=== PATIENT | female | born 1985 | race Hispanic/Latino ===

== ENCOUNTER 2017-06-16 17:02 | Outpatient (CLI) | payer BC | END 2017-06-16 17:03 | disposition home or self-care (01) | LOC: BICRAD 17:02 | PROVIDERS: ATTEND Podiatrist | DX: M79.674 Pain in right toe(s) (principal); M79.671 Pain in right foot ==

== ENCOUNTER 2017-08-07 16:16 | Emergency (ER) | payer BC ==
--- NOTE | 2017-08-07 17:10 | RAD ---
TWO VIEWS OF CHEST: 08/07/17 COMPARISON: 08/11/08. HISTORY: Pain. FINDINGS: Azygos lobe and fissure noted. No pneumothorax, pleural fluid, focal consolidation or alveolar edema. Mild interstitial prominence. IMPRESSION: No acute findings. POS: [facility]
--- NOTE | 2017-08-07 17:10 | RAD ---
TWO VIEWS LEFT HUMERUS: 08/07/17 COMPARISON: None. HISTORY: Pain. FINDINGS: No fracture is seen. IMPRESSION: No acute findings. POS: [facility]
[2017-08-07 17:11] LABS: #Basophils 0.1 thou/uL (0.0-0.2); #Eosinphils 0.1 thou/uL (0.0-0.7); #Lymphocytes 2.5 thou/uL (1.20-3.40); #Monocytes 0.5 thou/uL (0.11-0.59); #Neutrophils 5.9 thou/uL (1.40-6.50); %Eosinophils 1.1 % (0.0-10.0); %Lymphocytes 27.2 % (21.0-51.0); %Neutrophils 64.8 % (42.0-75.0); Hemoglobin 14.3 g/dL (12.0-16.0); Mean Corpuscular HGB CONC 35.1 g/dL (32.0-36.0); Mean Corpuscular Volume 88.3 fl (81.0-99.0); Mean Platelet Volume 10.5 fL (7.4-10.4); Platelet Count 221 thou/uL (130-400); Red Blood Cell (RBC) Count 4.62 mill/uL (4.20-5.40); White Blood Cell (WBC) Count 9.1 thou/uL (4.8-10.8)
[2017-08-07 17:24] LABS: ALT (SGPT) 42 U/L (8-55); AST (SGOT) 29 U/L (5-34); Albumin 4.5 g/dL (3.5-5.0); Alkaline Phosphatase 94 U/L (40-150); Anion Gap 13 mmol/L (10-20); BUN (Urea Nitrogen) 14 mg/dL (7.0-18.7); Bilirubin, Total 2.4 mg/dL (0.2-1.2); CK (CPK) 119 U/L (29-168); CKMB 0.9 ng/mL (0-6.6); Calc. Creatinine Clearance 0 mL/min (70-130); Carbon Dioxide 27 mmol/L (22-29); Chloride 104 mmol/L (98-107); Estimated GFR-MDRD 66; Globulin 3.3 g/dL (2.4-3.5); Glucose 86 mg/dL (70-105); Lipase 23 U/L (8-78); Potassium 3.5 mmol/L (3.5-5.1); Protein, Total 7.8 g/dL (6.0-8.3); Sodium 140 mmol/L (136-145); Troponin I Less than 0.010 ng/mL (< 0.028)
[2017-08-07] MEDS ORDERED: Ketorolac Tromethamine 30 MG/ML VIAL ONE (17:28)
== END 2017-08-07 18:07 | disposition home or self-care (01) ==
LOC: SCSER 16:16
DX: M79.622 Pain in left upper arm (principal); I10 Essential (primary) hypertension
CPT/HCPCS: 71046; 80053; 82553; 83690; 84484; 85025; 93005; 96374; 96375; J1885; J2270

== ENCOUNTER 2018-01-23 05:15 | Emergency (ER) | payer BC ==
[2018-01-23 05:55] LABS: #Basophils 0.1 thou/uL (0.0-0.2); #Eosinphils 0.1 thou/uL (0.0-0.7); #Monocytes 0.5 thou/uL (0.11-0.59); #Neutrophils 5.6 thou/uL (1.40-6.50); %Basophils 0.5 % (0.0-1.0); %Eosinophils 0.8 % (0.0-10.0); %Lymphocytes 32.6 % (21.0-51.0); %Monocytes 5.3 % (0.0-10.0); %Neutrophils 60.8 % (42.0-75.0); Hemoglobin 13.7 g/dL (12.0-16.0); Mean Corpuscular HGB CONC 34.5 g/dL (32.0-36.0); Mean Corpuscular Hemoglobin 31.4 pg (27.0-31.0); Mean Platelet Volume 9.7 fL (7.4-10.4); Platelet Count 221 thou/uL (130-400); RBC Distribution Width 10.8 % (11.5-14.5); Red Blood Cell (RBC) Count 4.36 mill/uL (4.20-5.40); White Blood Cell (WBC) Count 9.1 thou/uL (4.8-10.8)
[2018-01-23 06:04] LABS: ALT (SGPT) 48 U/L (8-55); AST (SGOT) 28 U/L (5-34); Albumin 4.3 g/dL (3.5-5.0); Alkaline Phosphatase 98 U/L (40-150); Anion Gap 12 mmol/L (10-20); BUN (Urea Nitrogen) 12 mg/dL (7.0-18.7); Bilirubin, Total 1.6 mg/dL (0.2-1.2); Calc. Creatinine Clearance 0 mL/min (70-130); Calcium 9.1 mg/dL (7.8-10.44); Carbon Dioxide 25 mmol/L (22-29); Chloride 106 mmol/L (98-107); Estimated GFR-MDRD 74; Globulin 2.5 g/dL (2.4-3.5); Glucose 103 mg/dL (70-105); Potassium 3.8 mmol/L (3.5-5.1); Protein, Total 6.8 g/dL (6.0-8.3); Sodium 139 mmol/L (136-145)
[2018-01-23] MEDS ORDERED: Morphine 4 MG/ML VIAL ONE ×2 (06:33→08:14)
[2018-01-23] MEDS ORDERED: Ketorolac Tromethamine 30 MG/ML VIAL ONE (06:33)
[2018-01-23 06:54] LABS: Bilirubin Negative (Negative); Blood, Urine Negative (Negative); Clarity CLEAR (Clear); Glucose, Urine (Dipstick) Negative (Negative); Leukocyte Negative (Negative); Nitrite Negative (Negative); Pregnancy Test - Urine (BHCG) Negative (Negative); Pregu Control Background? CLEAR/WHITE (CLR/WHITE); Pregu Control Bar Appear? YES (CONTROL BAR); Protein, Urine (Dipstick) Trace mg/dL (Neg-Trace); Specific Gravity 1.018 (1.002-1.036); Specific Gravity, Urine 1.018 (1.002-1.036)
--- NOTE | 2018-01-23 08:18 | CT ---
ABDOMEN AND PELVIC CT SCAN WITH IV CONTRAST: HISTORY: A 32-year-old female with a history of right-sided abdominal pain, right flank pain, and prior append ectomy. FINDINGS: There is a 0.4 cm diameter pleural-based nodule in the left lower lobe. No additional followup would be needed unless this patient is at very high risk. Probable small hiatal hernia. The liver, gallb ladder, pancreas, spleen, and adrenal glands are unremarkable. No renal calculus or acute obstruc tion. Status post appendectomy. Small bilateral ovarian follicle cyst, 2.8 cm on the right and 3.4 cm on the left. IUD in place. No abnormal cul-de-sac fluid. No bowel obstruction, abscess, adenopa thy, or other acute process. IMPRESSION: No significant acute process in the abdomen or pelvis. No renal calculus or obstruction. Small i ncidental bilateral ovarian follicle cyst. A 0.4 cm diameter pleural-based nodule in the left lower lobe. No additional followup would be needed unless the patient is at very high risk for a primary o r secondary lung neoplasm. POS: [facility]
== END 2018-01-23 09:02 | disposition home or self-care (01) ==
LOC: ERS 05:15
DX: R10.9 Unspecified abdominal pain (principal); I10 Essential (primary) hypertension; Z79.899 Other long term (current) drug therapy
CPT/HCPCS: 36415; 74177; 80053; 81003; 81025; 85025; 96361; 96374; 96375; J1885; J2270

== ENCOUNTER 2018-05-13 20:58 | Emergency (ER) | payer BC ==
[2018-05-13] MEDS ORDERED: Ondansetron PF 4 MG/2 ML Vial ONE (21:12)
[2018-05-13 21:20] LABS: #Monocytes 0.5 thou/uL (0.11-0.59); %Basophils 0.6 % (0.0-1.0); %Eosinophils 0.3 % (0.0-10.0); %Lymphocytes 11.4 % (21.0-51.0); %Neutrophils 81.7 % (42.0-75.0); Hemoglobin 13.8 g/dL (12.0-16.0); Mean Corpuscular Hemoglobin 30.5 pg (27.0-31.0); Mean Platelet Volume 10.8 fL (7.4-10.4); Platelet Count 174 thou/uL (130-400); RBC Distribution Width 10.8 % (11.5-14.5); Red Blood Cell (RBC) Count 4.53 mill/uL (4.20-5.40); White Blood Cell (WBC) Count 8.5 thou/uL (4.8-10.8)
[2018-05-13 21:24] LABS: BHCG - Serum Negative (NEGATIVE); Pregs Control Background? CLEAR/WHITE (CLR/WHITE); Pregs Control Bar Appear? YES (CONTROL BAR)
[2018-05-13 21:33] LABS: ALT (SGPT) 45 U/L (8-55); AST (SGOT) 39 U/L (5-34); Albumin 4.5 g/dL (3.5-5.0); Alkaline Phosphatase 111 U/L (40-150); Anion Gap 14 mmol/L (10-20); BUN (Urea Nitrogen) 12 mg/dL (7.0-18.7); Bilirubin, Total 2.1 mg/dL (0.2-1.2); Calc. Creatinine Clearance 0 mL/min (70-130); Calcium 9.4 mg/dL (7.8-10.44); Carbon Dioxide 24 mmol/L (22-29); Chloride 104 mmol/L (98-107); Estimated GFR-MDRD 73; Glucose 109 mg/dL (70-105); Lipase 22 U/L (8-78); Potassium 3.5 mmol/L (3.5-5.1); Protein, Total 7.5 g/dL (6.0-8.3); Sodium 138 mmol/L (136-145)
[2018-05-13] MEDS ORDERED: Morphine 4 MG/ML Carpuject ONE (21:42)
--- NOTE | 2018-05-13 23:31 | CT ---
CT OF THE ABDOMEN AND PELVIS WITH IV CONTRAST: 05/13/18 INDICATION: History of nausea, vomiting, diarrhea. COMPARISON: Prior CT dated 01/23/18. FINDINGS: Lung bases are clear. Liver, pancreas, adrenal glands, and spleen appear within normal limits. The kidneys are normal appea ring. No free fluid or enlarged lymph nodes are evident. The appendix is not definitely visualized. There are no secondary signs of appendicitis. There is some fluid filled loops of small bowel within the distal ileum. There are bilateral adnexal hypodensities that appear similar to the comparison study dated 01/23/18 which may reflect mildly prom inent follicular cysts. There is an IUD in place. No free fluid is evident within the pelvis. The sony dder is unremarkable appearing. No definite acute osseous abnormality is evident. IMPRESSION: 1. Mild fluid filled loops of small bowel within the lower abdomen may reflect a mild enteritis. 2. Bilateral adnexal cystic lesions suspicious for follicular cysts. This is similar to a compar d[facility] CT dated 01/23/18. 3. IUD. 4. Other findings as above. POS: [facility]
== END 2018-05-13 22:52 | disposition home or self-care (01) ==
LOC: SCSER 20:58
DX: N83.02 Follicular cyst of left ovary (principal); N83.01 Follicular cyst of right ovary; R19.7 Diarrhea, unspecified; I10 Essential (primary) hypertension; Z79.899 Other long term (current) drug therapy
CPT/HCPCS: 74177; 80053; 83690; 84703; 85025; 96361; 96374; 96375; J2270; J2405

== ENCOUNTER 2018-08-07 12:42 | Outpatient (CLI) | payer BC ==
--- NOTE | 2018-08-07 14:55 | ULT ---
LEFT BREAST ULTRASOUND: INDICATIONS: Ultrasound of the retroareolar region of the left breast is performed to evaluate bloody discharge fr om the left breast. No mammographic abnormality identified. FINDINGS: Ultrasound reveals two small cysts in the retroareolar region, each measuring 3 to 5 mm. No suspicio us sonographic finding. IMPRESSION: No suspicious sonographic abnormality; however, due to the presence of a bloody discharge, further ev aluation with breast MRI is recommended. BI-RADS 0-Further evaluation with breast MRI is recommended. POS: [facility]
== END 2018-08-07 12:43 | disposition home or self-care (01) ==
LOC: BICMAMMO 12:42
PROVIDERS: ATTEND Family Medicine
DX: N64.4 Mastodynia (principal)
CPT/HCPCS: 77066; G0279

== ENCOUNTER 2018-08-27 07:15 | Outpatient (CLI) | payer BC ==
--- NOTE | 2018-08-27 09:25 | MRI ---
MRI OF THE BILATERAL BREASTS WITHOUT AND WITH CONTRAST: Comparison: Ultrasound of the left breast, bilateral mammograms, 08-07-18. History: Left breast pain. Bloody nipple discharge. This nipple discharge has resolved since the prev ious examinations. Technique: Multiplanar, multisequence MRI images were obtained of the breasts without and with IV con trast. 3D MIP reformats and contrast enhancement images were generated on a [employer] workstation. FINDINGS: There is heterogeneously dense breast parenchyma. Minimal background parenchymal enhancement is seen. No abnormal signal is seen within the ducts to suggest blood products within the ducts of either su ast. No abnormal enhancement is seen within either breast. No suspicious mass is identified. No axillary adenopathy is seen. No internal mammillary lymph nodes are identified. The visualized osseous structures and anterior liver are unremarkable. IMPRESSION: BIRADS category 1 - negative. Annual screening mammography is recommended at the age of 40.
== END 2018-08-27 07:16 | disposition home or self-care (01) ==
LOC: BICMRI 07:15
PROVIDERS: ATTEND Family Medicine
DX: N64.4 Mastodynia (principal)
CPT/HCPCS: 82565; C8908

== ENCOUNTER 2019-03-19 22:36 | Emergency (ER) | payer BC ==
[2019-03-19] MEDS ORDERED: Labetalol HCl 100 MG/20 ML VIAL ONE (23:12)
--- NOTE | 2019-03-19 23:23 | CT ---
CT Brain WO Con HISTORY: Hypertension and left arm numbness. COMPARISON: None. FINDINGS: The ventricular and cisternal system is within normal limits. There are no signs of intrace rebral hemorrhage or extra-axial fluid. The mastoid air cells and visualized sinuses are clear. IMPRESSION: No acute intracranial abnormalities.
[2019-03-19 23:30] LABS: Anion Gap 13 mmol/L (10-20); BUN (Urea Nitrogen) 10 mg/dL (7.0-18.7); Calc. Creatinine Clearance 0 mL/min (70-130); Calcium 9.7 mg/dL (7.8-10.44); Carbon Dioxide 26 mmol/L (22-29); Chloride 105 mmol/L (98-107); Estimated GFR-MDRD 78; Glucose 108 mg/dL (70-105); Potassium 3.7 mmol/L (3.5-5.1); Sodium 140 mmol/L (136-145)
== END 2019-03-20 01:00 | disposition home or self-care (01) ==
LOC: SCSER 22:36
DX: I10 Essential (primary) hypertension (principal); Z79.899 Other long term (current) drug therapy
CPT/HCPCS: 70450; 80048; 93005; 96374; 96376

== ENCOUNTER 2019-06-16 16:33 | Outpatient (CLI) | payer BC ==
--- NOTE | 2019-06-16 16:53 | RAD ---
XR Heel Lt 2 View STANDARD History: Plantar fascial fibromatosis Comparison: None. Findings: Small dorsal and plantar calcaneal spurs. No acute fracture. No malalignment. Impression: Small dorsal and plantar calcaneal spurs.
== END 2019-06-16 16:34 | disposition home or self-care (01) ==
LOC: BICRAD 16:33
PROVIDERS: ATTEND Podiatrist
DX: M72.2 Plantar fascial fibromatosis (principal); M77.32 Calcaneal spur, left foot

== ENCOUNTER 2020-04-03 07:08 | Outpatient (CLI) | payer BC ==
--- NOTE | 2020-04-03 07:38 | ULT ---
Sonogram right upper quadrant HISTORY: Abnormal liver function tests. FINDINGS: Gallbladder has a normal appearance without stones. Common duct is 0.4 cm. Liver is diffusely echogenic without focal mass or intrahepatic biliary dilatation. No free fluid. IMPRESSION : Hepato-steatosis.
--- NOTE | 2020-04-03 08:19 | RAD ---
EXAM: 4 views of the right knee HISTORY: Knee pain COMPARISON: None FINDINGS: No knee effusion is seen. There is no evidence of acute fracture or dislocation. No signifi cant degenerative changes are seen. No soft tissue swelling is present. IMPRESSION: No evidence of acute osseous abnormality.
== END 2020-04-03 07:09 | disposition home or self-care (01) ==
LOC: BICULT 07:08
PROVIDERS: ATTEND Physician Assistant
DX: M25.561 Pain in right knee (principal); R79.89 Other specified abnormal findings of blood chemistry; K76.0 Fatty (change of) liver, not elsewhere classified
CPT/HCPCS: 76705

== ENCOUNTER 2020-06-12 23:46 | Emergency (ER) | payer BC | END 2020-06-13 00:59 | disposition left against medical advice (07) | LOC: ERS 23:46 | DX: Z53.21 Procedure and treatment not carried out due to patient leaving prior to being seen by health care provider (principal) | CPT/HCPCS: 93005 ==

== ENCOUNTER 2021-01-26 08:14 | Outpatient (CLI) | payer BC | END 2021-01-26 08:15 | disposition home or self-care (01) | LOC: BICMAMMO 08:14 | PROVIDERS: ATTEND Physician Assistant | DX: N63.0 Unspecified lump in unspecified breast (principal) | CPT/HCPCS: 77066; G0279 ==

== ENCOUNTER 2022-02-22 08:47 | Outpatient (CLI) | payer BC, MEDICAID | END 2022-02-22 08:48 | disposition home or self-care (01) | LOC: BICMAMMO 08:47 | PROVIDERS: ATTEND Nurse Practitioner Family | DX: N64.4 Mastodynia (principal); N63.20 Unspecified lump in the left breast, unspecified quadrant | CPT/HCPCS: 77066; G0279 ==

== ENCOUNTER 2022-07-07 23:22 | Emergency (ER) | payer BC | END 2022-07-08 01:10 | disposition home or self-care (01) | LOC: ERS 23:22 | DX: R05.9 Cough, unspecified (principal); I10 Essential (primary) hypertension | CPT/HCPCS: 71046; 93005 ==

== ENCOUNTER 2024-07-02 22:03 | Emergency (ER) | payer BC ==
[2024-07-02] MEDS ORDERED: cloNIDine 0.1 MG TAB ONE (23:12)
[2024-07-02] MEDS ORDERED: Ibuprofen 200 MG TAB ONE (23:13)
[2024-07-02 23:41] LABS: #Basophils 0.03 10x3/uL (0.0-0.2); %Basophils 0.3 % (0.0-1.0); %Eosinophils 1.5 % (0.0-10.0); %Lymphocytes 32.2 % (21.0-51.0); %Monocytes 5.2 % (0.0-10.0); %Neutrophils 60.6 % (42.0-75.0); Hemoglobin 14.3 g/dL (12.0-16.0); Mean Corpuscular HGB CONC 36.7 g/dL (32.0-36.0); Mean Corpuscular Hemoglobin 32.8 pg (27.0-31.0); Mean Corpuscular Volume 89.4 fL (78.0-98.0); Mean Platelet Volume 11.9 fL (7.4-10.4); Platelet Count 218 10x3/uL (130-400); RBC Distribution Width 12.2 % (11.5-14.5); Red Blood Cell (RBC) Count 4.36 mill/uL (4.20-5.40)
[2024-07-03 00:05] LABS: Troponin I Less than 0.010 ng/mL (< 0.028)
[2024-07-03 00:23] LABS: ALT (SGPT) 83 U/L (8-55); AST (SGOT) 56 U/L (5-34); Albumin 4.3 g/dL (3.5-5.0); Alkaline Phosphatase 102 U/L (40-110); Anion Gap 15 mmol/L (10-20); BUN (Urea Nitrogen) 8 mg/dL (7.0-18.7); Bilirubin, Total 0.8 mg/dL (0.2-1.2); Calc. Creatinine Clearance 0 mL/min (70-130); Calcium 9.5 mg/dL (7.8-10.44); Carbon Dioxide 21 mmol/L (22-29); Chloride 106 mmol/L (98-107); Estimated GFR 94; Globulin 3.8 g/dL (2.4-3.5); Glucose 126 mg/dL (70-105); Potassium 4.2 mmol/L (3.5-5.1); Protein, Total 8.1 g/dL (6.0-8.3); Sodium 138 mmol/L (136-145)
[2024-07-03] MEDS ORDERED: Acetaminophen 325 MG TAB ONE (01:19)
[2024-07-03 01:31] LABS: Troponin I Less than 0.010 ng/mL (< 0.028)
[2024-07-03] MEDS ORDERED: Iopamidol-370 76% 500 ML MDV (1 ML CHARGE) ONE (15:40)
== END 2024-07-03 02:19 | disposition home or self-care (01) ==
LOC: ERS 22:03
DX: M94.0 Chondrocostal junction syndrome [Tietze] (principal); I10 Essential (primary) hypertension
CPT/HCPCS: 36415; 71045; 71275; 80053; 84484; 85025; 85379; 93005; Q9967

== ENCOUNTER 2025-03-23 10:06 | Outpatient (CLI) | payer BC | END 2025-03-23 10:07 | disposition home or self-care (01) | LOC: RAD 10:06 | PROVIDERS: ATTEND Internal Medicine | DX: K21.9 Gastro-esophageal reflux disease without esophagitis (principal); R13.10 Dysphagia, unspecified | CPT/HCPCS: 74230 ==

== ENCOUNTER 2025-04-12 15:36 | Outpatient (CLI) | payer BC | END 2025-04-12 15:37 | disposition home or self-care (01) | LOC: BICRAD 15:36 | PROVIDERS: ATTEND Nurse Practitioner Family | DX: J40 Bronchitis, not specified as acute or chronic (principal) | CPT/HCPCS: 71046 ==

== ENCOUNTER 2025-06-08 19:25 | Emergency (ER) | payer BC ==
[2025-06-08] MEDS ORDERED: Acetaminophen 500 MG TAB ONE (20:17)
[2025-06-08 20:48] LABS: #Basophils 0.03 10x3/uL (0.0-0.2); #Eosinophils 0.09 10x3/uL (0.0-0.7); #Monocytes 0.51 10x3/uL (0.11-0.59); #Neutrophils 6.12 10x3/uL (1.40-6.50); %Basophils 0.3 % (0.0-1.0); %Eosinophils 1.0 % (0.0-10.0); %Lymphocytes 26.1 % (21.0-51.0); %Monocytes 5.6 % (0.0-10.0); %Neutrophils 66.8 % (42.0-75.0); Hematocrit 42.4 % (36.0-47.0); Hemoglobin 14.8 g/dL (12.0-16.0); Mean Corpuscular Hemoglobin 32.1 pg (27.0-31.0); Mean Corpuscular Volume 92.0 fL (78.0-98.0); Platelet Count 267 10x3/uL (130-400); Red Blood Cell (RBC) Count 4.61 mill/uL (4.20-5.40); White Blood Cell (WBC) Count 9.16 10x3/uL (4.8-10.8)
[2025-06-08 21:03] LABS: BHCG - Serum Negative (NEGATIVE); Pregs Control Background? CLEAR/WHITE (CLR/WHITE); Pregs Control Bar Appear? YES (CONTROL BAR)
[2025-06-08 21:16] LABS: ALT (SGPT) 140 U/L (Less than 34); AST (SGOT) 112 U/L (11-34); Albumin 4.8 g/dL (3.1-4.5); Alkaline Phosphatase 74 U/L (40-110); Anion Gap 14 mmol/L (10-20); BUN (Urea Nitrogen) 11 mg/dL (7.0-18.7); Bilirubin, Total 1.2 mg/dL (0.3-1.2); Calc. Creatinine Clearance 0 mL/min (70-130); Calcium 9.7 mg/dL (7.8-10.44); Carbon Dioxide 24 mmol/L (22-29); Chloride 104 mmol/L (98-107); Globulin 2.9 g/dL (2.4-3.5); Glucose 110 mg/dL (70-105); Potassium 3.7 mmol/L (3.5-5.1); Sodium 138 mmol/L (136-145)
== END 2025-06-09 00:09 | disposition home or self-care (01) ==
LOC: ERS 19:25
DX: M54.50 Low back pain, unspecified (principal); R20.2 Paresthesia of skin; I10 Essential (primary) hypertension; E11.9 Type 2 diabetes mellitus without complications
CPT/HCPCS: 72148; 80053; 84703; 85025; 86141; 96374; 96375; J2060; J2270